=== PATIENT | female | born 1970 | race Caucasian/White ===

== ENCOUNTER → 2017-04-17 | Outpatient (CLI) | payer BC ==
[~2017-04-17] MED LIST: GABA-549 PO; HYDR-385 PO; HYDR-4305 PO; INSU100I35 SQ; INSU300I SUBQ; NOR25 PO
== END ==
LOC: RESP 06:45
PROVIDERS: ATTEND Internal Medicine
DX: J44.9 Chronic obstructive pulmonary disease, unspecified (principal); J98.4 Other disorders of lung
CPT/HCPCS: 94060; 94726; 94729